=== PATIENT | male | born 1950 | race Caucasian/White ===

== ENCOUNTER 2018-10-02 14:25 | Emergency (ER) | payer MEDICARE ==
[~2018-10-02] VITALS: Ht 172.7 cm; Wt 61.4 kg
[~2018-10-02 14:25] MED LIST: CIPROFLOXACN500 MG PO; CLARITIN10 MG PO; FLEXERIL PO
[2018-10-02 15:15] LABS: HEMATOCRIT 42.7 % (39.0-50.0); HEMOGLOBIN 15.2 g/dl (14.0-18.0); IMMATURE GRANULOCYTES 0.3 % (0.0-5.0); MEAN CELL VOLUME 94.7 fL CALC (80.0-100.0); MEAN CORPUSCULAR HGB 33.7 pG CALC (26.0-32.0); MEAN CORPUSCULAR HGB CONC 35.6 g/L CALC (32.0-36.0); NEUT# 3.39 thou/uL (1.82-7.42); RED BLOOD COUNT 4.51 mill/uL (4.70-6.10); RED CELL DISTRI WIDTH 12.1 % (11.5-15.5)
[2018-10-02 15:29] LABS: ALKALINE PHOSPHATASE 73 u/l (38-126); ANION GAP 13 (6-22 (CALC)); BILIRUBIN, TOTAL 0.5 mg/dL (0.0-1.4); BUN 3 mg/dL (8-23); BUN/CREATININE RATIO 5 (12-20 (CALC)); CARBON DIOXIDE 24 mmol/l (22-30); CHLORIDE 101 mmol/l (95-108); CREATININE 0.7 mg/dL (0.7-1.3); GFR > 60 ML/MIN (>=60 (CALC)); GFR FOR AFR.AMER. > 60 ML/MIN (>=60 (CALC)); POTASSIUM 3.8 mmol/l (3.5-5.1); SGOT/AST 32 u/l (19-48); SODIUM 133 mmol/l (137-146); TOTAL PROTEIN 7.2 g/dL (6.3-8.2)
[2018-10-02 17:27] VITALS: BP 149/87
== END 2018-10-02 17:50 | disposition home or self-care (01) ==
LOC: ED 14:25
PROVIDERS: Family Medicine
DX: R41.82 Altered mental status, unspecified (principal); R94.31 Abnormal electrocardiogram [ECG] [EKG]

== ENCOUNTER 2019-11-13 19:31 | Observation (INO) | payer MEDICARE ==
[~2019-11-13] VITALS: Ht 172.7 cm; Wt 54.0 kg
--- NOTE | 2019-11-13 19:32 | NUR ---
BY WC TO ROOM
--- NOTE | 2019-11-13 20:00 | NUR ---
PT PRESENTS WITH SHARP CHEST PAIN OF 7/10 THAT RADIATES TO LEFT JAW. PT MENTIONS FEELING THE PAIN AND PRESSURE AT 1900. PT DENIES ANY OTHER PAINS. CAP REFILL BRISK, LUNGS SOUND DEMINISHED IN THE LOWER LUNGS BILATERALLY. THE RIGHT UPPER LUNG SOUNDS CLEAR THE LEFT UPPER LUNG IS LESS AUDIBLE THAN RIGHT UPPER LUNG. PULSES EQUAL BILATERALLY IN ALL EXTREMITIES. SKIN IS WARM AND PINK. WILL CONTINUE TO MONITOR
[2019-11-13] MEDS ORDERED: MIRTAZAPINE15 M1 PO (20:04)
[2019-11-13] MEDS ORDERED: VITAMIN B-1100 M1 PO (20:05)
[2019-11-13] MEDS ORDERED: VITAMIN B-12500 MCG PO (20:05)
[2019-11-13 20:12] LABS: HEMATOCRIT 41.2 % (39.0-50.0); HEMOGLOBIN 14.3 g/dl (14.0-18.0); IMMATURE GRANULOCYTES 0.7 % (0.0-5.0); MEAN CELL VOLUME 90.9 fL CALC (80.0-100.0); MEAN CORPUSCULAR HGB 31.6 pG CALC (26.0-32.0); MEAN CORPUSCULAR HGB CONC 34.7 g/L CALC (32.0-36.0); NEUT# 4.3 thou/uL (1.82-7.42); RED BLOOD COUNT 4.53 mill/uL (4.70-6.10); RED CELL DISTRI WIDTH 12.2 % (11.5-15.5)
[2019-11-13 20:13] LABS: URINE BILIRUBIN - DIPSTICK NEGATIVE (NEGATIVE); URINE BLOOD DIPSTICK NEGATIVE (NEGATIVE); URINE COLOR YELLOW; URINE GLUCOSE - DIPSTICK NEGATIVE (NEGATIVE); URINE KETONE NEGATIVE (NEGATIVE); URINE LEUK ESTERASE NEGATIVE (NEGATIVE); URINE NITRITE - DIPSTICK NEGATIVE (Negative); URINE PROTEIN - DIPSTICK NEGATIVE (NEG-TRACE); URINE UROBILINOGEN - DIPSTICK 0.2 E.U./dL (0.2)
[2019-11-13 20:30] LABS: ALBUMIN 3.4 g/dL (3.2-5.0); ANION GAP 11 (6-22 (CALC)); BUN 7 mg/dL (8-23); BUN/CREATININE RATIO 12 (12-20 (CALC)); CARBON DIOXIDE 28 mmol/l (22-30); CHLORIDE 92 mmol/l (95-108); CREATININE 0.6 mg/dL (0.7-1.3); GFR > 60 ML/MIN (>=60 (CALC)); GFR FOR AFR.AMER. > 60 ML/MIN (>=60 (CALC)); SODIUM 127 mmol/l (137-146)
[2019-11-13 20:36] LABS: ALKALINE PHOSPHATASE 150 u/l (38-126); BILIRUBIN, TOTAL 1.1 mg/dL (0.0-1.4); SGOT/AST 162 u/l (19-48)
[2019-11-13 20:42] LABS: MYOGLOBIN 26 ng/mL (0 - 121)
--- NOTE | 2019-11-13 21:16 | NUR ---
PT RESTING ON STRETCHER WATCHING TV. PT CONTINUES TO STATES THAT HIS PAIN IS 7/10. NOTIFIED
--- NOTE | 2019-11-13 21:43 | NUR ---
REPORT ATTEMPTED TO BE [facility] AND FRANKI STATED THAT [facility] IS NO WHERE TO BE FOUND, THAT SOON SHE SEES HER, THEY WILL CALL BACK
--- NOTE | 2019-11-13 21:54 | NUR ---
REPORT [facility] DO[facility]
--- NOTE | 2019-11-13 22:00 | NUR ---
PT. TAKEN TO [facility] FLOOR VIA STRETCHER, NO C/O AT THIS TIME.
[2019-11-13 22:20] VITALS: BP 132/78
--- NOTE | 2019-11-13 22:45 | NUR ---
[id number]- PT. ARRIVED TO THE FLOOR VIA STRETCHER ACCOMPANIED BY ER NURSE AND . PT. WITH DEMENTIA AND PER PT. HAS NO SHORT TERM MEMORY. ALL PMH OBTAINED FROM WHO IS HIS POA. ADMISSION ASSESSMENT COMPLETED.EDUCATED STAFF EDITOR LIGHT, POC, AND ROOM AND VERBALIZES UNDERSTANDING. BED ALARM SET FOR SAFETY. PT. REPORTS PAIN POINTING TO EPIGASTRIC 10/10 AND MEDICATED WITH ORDERED MORPHINE, WILL REASSESS. IVF STARTED PER ORDER. CALL LIGHT IS IN REACH. WILL CONTINUE TO MONITOR.
[2019-11-14] VITALS (7 sets, daily range): BP systolic 130–150; BP diastolic 74–87
--- NOTE | 2019-11-14 | NUR ---
PT. RESTING IN BED WITH EYES CLOSED; RESP. EVEN AND UNLABORED. CALL LIGHT IS IN REACH. BED ALARM SET.
--- NOTE | 2019-11-14 02:14 | NUR ---
ASSISTED TO USE URINAL AND BACK INTO BED. BED ALARM RE-SET. VOICES NO CONCERNS. CALL LIGHT IS IN REACH.
--- NOTE | 2019-11-14 03:25 | NUR ---
PT. ASSISTED TO USE THE URINAL AND BACK INTO BED. PT. VOICES NO CONCERNS. VSS. ENCOURAGED TO CALL FOR ANY NEEDS.
--- NOTE | 2019-11-14 08:30 | NUR ---
RESTING IN BED. AT BEDSIDE. RESP NON-LABORED. LUNGS CLEAR. IV IN LAC SITE BEING, NS INFUSING AT 120 L/HR, IV SITE HEALTHY. PATIENT DENIES ANY CHEST PAIN OR DISCOMFORTS. DISCUSSED PLAN OF CARE. DENIES NEEDS AT THIS TIME. CALL [facility] IN REACH.
--- NOTE | 2019-11-14 12:20 | NUR ---
RESTING IN BED. ATE ONLY VERY SMALL AMOUNT FROM LUNCH TRAY. NO COMPLAINTS VOICED. IV INFUSING WITHOUT INCIDENT.
--- NOTE | 2019-11-14 16:10 | NUR ---
DR STAPLETON AND Hanh BLANCA/GEORGE IN TO SEE PATIENT.
--- NOTE | 2019-11-14 19:10 | NUR ---
REPORT RECEIVED FROM MARYAM TENORIO. PT RESTING IN BED, FAMILY AT BEDSIDE. NO S/S OF DISTRESS AT THIS TIME. SAFETY PRECAUTIONS IN PLACE. WILL CONTINUE TO MONITOR.
--- NOTE | 2019-11-14 20:33 | NUR ---
PT RESTING IN BED. RESPIRATIONS EVEN AND UNLABORED ON RA, LUNGS SOUND DIMINISHED. PEDAL PULSES STRONG. PT DENIES ANY PAIN OR DISCOMFORT AT THIS TIME. BED ALARM ACTIVE FOR PT SAFETY. WILL CONTINUE TO MONITOR.
--- NOTE | 2019-11-15 00:15 | NUR ---
PT RESTING IN BED. RESPIRATIONS EVEN AND UNLABORED ON RA. SAFETY PRECAUTIONS IN PLACE. WILL CONTINUE TO MONITOR.
[2019-11-15 03:39] VITALS: BP 141/85
--- NOTE | 2019-11-15 03:57 | NUR ---
PT RESTING IN BED. RESPIRATIONS EVEN AND UNLABORED ON RA. CALL [facility] WITHIN REACH. WILL CONTINUE TO MONITOR.
[2019-11-15 05:20] LABS: HEMATOCRIT 36.7 % (39.0-50.0); IMMATURE GRANULOCYTES 0.3 % (0.0-5.0); MEAN CELL VOLUME 95.6 fL CALC (80.0-100.0); MEAN CORPUSCULAR HGB 33.9 pG CALC (26.0-32.0); MEAN CORPUSCULAR HGB CONC 35.4 g/L CALC (32.0-36.0); NEUT# 3.39 thou/uL (1.82-7.42); RED BLOOD COUNT 3.84 mill/uL (4.70-6.10); RED CELL DISTRI WIDTH 12.3 % (11.5-15.5)
[2019-11-15 05:35] LABS: ALKALINE PHOSPHATASE 210 u/l (38-126); BILIRUBIN, TOTAL 0.8 mg/dL (0.0-1.4); BUN 4 mg/dL (8-23); BUN/CREATININE RATIO 7 (12-20 (CALC)); CHLORIDE 103 mmol/l (95-108); CREATININE 0.6 mg/dL (0.7-1.3); GFR > 60 ML/MIN (>=60 (CALC)); GFR FOR AFR.AMER. > 60 ML/MIN (>=60 (CALC)); POTASSIUM 4.2 mmol/l (3.5-5.1); SGOT/AST 138 u/l (19-48); SODIUM 131 mmol/l (137-146); TOTAL PROTEIN 5.7 g/dL (6.3-8.2)
[2019-11-15 06:10] LABS: ALBUMIN 2.6 g/dL (3.2-5.0); ANION GAP 11 (6-22 (CALC)); CARBON DIOXIDE 21 mmol/l (22-30)
[2019-11-15 07:55] VITALS: BP 122/68
--- NOTE | 2019-11-15 07:55 | NUR ---
SITTING UP IN CHAIR ON ROUNDS. RESP NON-LABORED. OCC NON-PRODUCTIVE COUGH NOTED. BREATH SOUNDS CLEAR, DIMINISHED IN BASES BILATERALLY. IV IN LFA, SITE BENIGN, NS INFUSING AT 120 ML/HR. IV SITE HEALTHY. DISCUSSED PLAN OF CARE. DENIES NEEDS AT THIS TIME. CALL [facility] IN REACH.
--- NOTE | 2019-11-15 10:00 | NUR ---
AMBULATED IN VEGA WITH STABLE STANCE AND GAIT, ACCOMPANIED BY SPOUSE.
[2019-11-15 11:00] VITALS: BP 122/84
--- NOTE | 2019-11-15 12:15 | NUR ---
AMBULATED IN VEGA EARLIER ON OWN BUT IN VIEW OF NURSES STATION, STEADY GAIT.
[2019-11-15] MEDS ORDERED: ZITHROMAX500 MG PO (13:33)
--- NOTE | 2019-11-15 14:48 | NUR ---
Discharge instructions given. Patient verbalizes understanding of same. Discharged in stable condition via Wheelchair to Home with spouse. All belongings sent with pt.
== END 2019-11-15 14:48 | disposition home or self-care (01) ==
LOC: ED 19:31 → ED-I 20:55 → ED 21:15 → MS2 21:16
PROVIDERS: Emergency Medicine; Nurse Practitioner Family; ADMIT Internal Medicine; ATTEND Internal Medicine
DX: R07.9 Chest pain, unspecified (principal); E87.1 Hypo-osmolality and hyponatremia; R91.8 Other nonspecific abnormal finding of lung field; F03.90 Unspecified dementia, unspecified severity, without behavioral disturbance, psychotic disturbance, mood disturbance, and anxiety; K21.9 Gastro-esophageal reflux disease without esophagitis; Z68.1 Body mass index [BMI] 19.9 or less, adult; F10.20 Alcohol dependence, uncomplicated; E44.0 Moderate protein-calorie malnutrition; K70.10 Alcoholic hepatitis without ascites; F17.290 Nicotine dependence, other tobacco product, uncomplicated
CPT/HCPCS: G0378

== ENCOUNTER 2019-12-31 04:42 | Inpatient (IN) | payer MEDICARE ==
[~2019-12-31] VITALS: Ht 172.7 cm; Wt 54.0 kg
[~2019-12-31 04:42] MED LIST changes: +MIRTAZAPINE15 M1 PO; +VITAMIN B-1100 M1 PO; +VITAMIN B-12500 MCG PO; +ZITHROMAX500 MG PO
[2019-12-31] MEDS ORDERED: VITAMIN D31000 UNI1 PO (05:02)
[2019-12-31] MEDS ORDERED: BUSPAR5 MG PO (05:02)
[2019-12-31] MEDS ORDERED: OMEPRAZOLE10 MG PO (05:03)
[2019-12-31 05:15] LABS: HEMATOCRIT 45.3 % (39.0-50.0); HEMOGLOBIN 15.8 g/dl (14.0-18.0); IMMATURE GRANULOCYTES 0.2 % (0.0-5.0); MEAN CELL VOLUME 89.7 fL CALC (80.0-100.0); MEAN CORPUSCULAR HGB 31.3 pG CALC (26.0-32.0); MEAN CORPUSCULAR HGB CONC 34.9 g/L CALC (32.0-36.0); NEUT# 3.56 thou/uL (1.82-7.42); RED BLOOD COUNT 5.05 mill/uL (4.70-6.10); RED CELL DISTRI WIDTH 13.1 % (11.5-15.5)
[2019-12-31 05:26] LABS: ALBUMIN 4.3 g/dL (3.2-5.0); ALKALINE PHOSPHATASE 109 u/l (38-126); AMYLASE 142 u/l (30-110); ANION GAP 13 (6-22 (CALC)); BILIRUBIN, TOTAL 0.6 mg/dL (0.0-1.4); BUN 4 mg/dL (8-23); BUN/CREATININE RATIO 7 (12-20 (CALC)); CARBON DIOXIDE 25 mmol/l (22-30); CHLORIDE 98 mmol/l (95-108); CREATININE 0.6 mg/dL (0.7-1.3); GFR > 60 ML/MIN (>=60 (CALC)); GFR FOR AFR.AMER. > 60 ML/MIN (>=60 (CALC)); LIPASE 933 u/l (23-300); POTASSIUM 3.8 mmol/l (3.5-5.1); SGOT/AST 28 u/l (19-48); SODIUM 132 mmol/l (137-146); TOTAL PROTEIN 8.2 g/dL (6.3-8.2)
[2019-12-31 05:38] LABS: MYOGLOBIN 29 ng/mL (0 - 121)
[2019-12-31 06:47] LABS: URINE BILIRUBIN - DIPSTICK NEGATIVE (NEGATIVE); URINE BLOOD DIPSTICK NEGATIVE (NEGATIVE); URINE COLOR YELLOW; URINE GLUCOSE - DIPSTICK NEGATIVE (NEGATIVE); URINE KETONE TRACE mg/dL (NEGATIVE); URINE LEUK ESTERASE NEGATIVE (NEGATIVE); URINE NITRITE - DIPSTICK NEGATIVE (Negative); URINE PH 7.5 (4.5-8.0); URINE PROTEIN - DIPSTICK NEGATIVE (NEG-TRACE); URINE UROBILINOGEN - DIPSTICK 0.2 E.U./dL (0.2)
[2019-12-31 09:15] VITALS: BP 175/96
[2019-12-31 16:00] VITALS: BP 177/97
[2019-12-31 18:36] VITALS: BP 137/62
[2020-01-01 04:11] VITALS: BP 109/64
[2020-01-01 05:39] LABS: IMMATURE GRANULOCYTES 0.2 % (0.0-5.0); MEAN CORPUSCULAR HGB 31.6 pG CALC (26.0-32.0); MEAN CORPUSCULAR HGB CONC 34.7 g/L CALC (32.0-36.0); NEUT# 3.16 thou/uL (1.82-7.42); RED BLOOD COUNT 4.21 mill/uL (4.70-6.10); RED CELL DISTRI WIDTH 13.2 % (11.5-15.5)
[2020-01-01 05:49] LABS: HEMATOCRIT 38.3 % (39.0-50.0); HEMOGLOBIN 13.3 g/dl (14.0-18.0)
[2020-01-01 06:04] LABS: ANION GAP 9 (6-22 (CALC)); BUN 3 mg/dL (8-23); BUN/CREATININE RATIO 6 (12-20 (CALC)); CARBON DIOXIDE 24 mmol/l (22-30); CHLORIDE 99 mmol/l (95-108); CREATININE 0.5 mg/dL (0.7-1.3); GFR > 60 ML/MIN (>=60 (CALC)); GFR FOR AFR.AMER. > 60 ML/MIN (>=60 (CALC)); LIPASE 912 u/l (23-300); MAGNESIUM 1.5 mg/dL (1.6-2.3); POTASSIUM 3.5 mmol/l (3.5-5.1); SODIUM 129 mmol/l (137-146)
[2020-01-01 08:00] VITALS: BP 135/73
[2020-01-01 14:40] VITALS: BP 149/87
[2020-01-01 18:36] VITALS: BP 145/78
[2020-01-02 04:22] VITALS: BP 153/83
[2020-01-02 05:30] LABS: HEMATOCRIT 39.6 % (39.0-50.0); HEMOGLOBIN 13.6 g/dl (14.0-18.0); MEAN CELL VOLUME 90.8 fL CALC (80.0-100.0); MEAN CORPUSCULAR HGB 31.2 pG CALC (26.0-32.0); MEAN CORPUSCULAR HGB CONC 34.3 g/L CALC (32.0-36.0); RED BLOOD COUNT 4.36 mill/uL (4.70-6.10); RED CELL DISTRI WIDTH 13.1 % (11.5-15.5)
[2020-01-02 05:59] LABS: ALBUMIN 2.8 g/dL (3.2-5.0); ALKALINE PHOSPHATASE 69 u/l (38-126); ANION GAP 9 (6-22 (CALC)); BILIRUBIN, TOTAL 0.8 mg/dL (0.0-1.4); BUN 2 mg/dL (8-23); BUN/CREATININE RATIO 4 (12-20 (CALC)); CARBON DIOXIDE 24 mmol/l (22-30); CHLORIDE 97 mmol/l (95-108); CREATININE 0.5 mg/dL (0.7-1.3); GFR > 60 ML/MIN (>=60 (CALC)); GFR FOR AFR.AMER. > 60 ML/MIN (>=60 (CALC)); MAGNESIUM 1.4 mg/dL (1.6-2.3); POTASSIUM 3.3 mmol/l (3.5-5.1); SGOT/AST 23 u/l (19-48); SODIUM 127 mmol/l (137-146); TOTAL PROTEIN 5.7 g/dL (6.3-8.2)
[2020-01-02 08:45] VITALS: BP 141/68
[2020-01-02 16:01] VITALS: BP 156/87
[2020-01-02 19:13] VITALS: BP 163/82
[2020-01-03 04:50] VITALS: BP 109/61
[2020-01-03 05:20] LABS: HEMATOCRIT 40.7 % (39.0-50.0); HEMOGLOBIN 13.8 g/dl (14.0-18.0); MEAN CELL VOLUME 90.4 fL CALC (80.0-100.0); MEAN CORPUSCULAR HGB 30.7 pG CALC (26.0-32.0); MEAN CORPUSCULAR HGB CONC 33.9 g/L CALC (32.0-36.0); RED BLOOD COUNT 4.5 mill/uL (4.70-6.10); RED CELL DISTRI WIDTH 12.9 % (11.5-15.5)
[2020-01-03 05:36] LABS: ANION GAP 8 (6-22 (CALC)); BUN 4 mg/dL (8-23); BUN/CREATININE RATIO 8 (12-20 (CALC)); CARBON DIOXIDE 26 mmol/l (22-30); CHLORIDE 98 mmol/l (95-108); CREATININE 0.5 mg/dL (0.7-1.3); GFR > 60 ML/MIN (>=60 (CALC)); GFR FOR AFR.AMER. > 60 ML/MIN (>=60 (CALC)); POTASSIUM 3.5 mmol/l (3.5-5.1); SODIUM 129 mmol/l (137-146)
[2020-01-03 06:06] LABS: MAGNESIUM 1.9 mg/dL (1.6-2.3)
[2020-01-03 06:59] LABS: AMYLASE 135 u/l (30-110); LIPASE 1058 u/l (23-300)
[2020-01-03 07:00] VITALS: BP 131/74
[2020-01-03] MEDS ORDERED: LIBRIUM25 M1 PO (12:32)
[2020-01-03] MEDS ORDERED: SOD CHLORIDE1 GM PO (12:33)
== END 2020-01-03 13:39 | disposition home or self-care (01) | DRG 439 ==
LOC: ED 04:42 → ED-I 05:03 → ED 05:03 → ED-I 07:00 → ED 07:21 → MS2 07:22
PROVIDERS: Family Medicine; Nurse Practitioner Family; ADMIT Internal Medicine; ATTEND Internal Medicine
PROC: 3E02340 Introduction of Influenza Vaccine into Muscle, Percutaneous Approach (ICD-10-PCS; principal; 2020-01-01)
PROC: 3E0234Z Introduction of Serum, Toxoid and Vaccine into Muscle, Percutaneous Approach (ICD-10-PCS; 2020-01-01)
DX: K85.20 Alcohol induced acute pancreatitis without necrosis or infection (principal); E44.0 Moderate protein-calorie malnutrition; Z68.1 Body mass index [BMI] 19.9 or less, adult; E22.2 Syndrome of inappropriate secretion of antidiuretic hormone; F10.26 Alcohol dependence with alcohol-induced persisting amnestic disorder; K86.0 Alcohol-induced chronic pancreatitis; F03.90 Unspecified dementia, unspecified severity, without behavioral disturbance, psychotic disturbance, mood disturbance, and anxiety; K21.9 Gastro-esophageal reflux disease without esophagitis; I10 Essential (primary) hypertension; L50.9 Urticaria, unspecified; D64.9 Anemia, unspecified; E83.42 Hypomagnesemia; E87.6 Hypokalemia; F17.290 Nicotine dependence, other tobacco product, uncomplicated; Z23 Encounter for immunization
CPT/HCPCS: J3475; Q9967; S0164

== ENCOUNTER 2020-01-08 15:27 | Inpatient (IN) | payer MEDICARE ==
[~2020-01-08] VITALS: Ht 172.7 cm; Wt 60.0 kg
[~2020-01-08 15:27] MED LIST changes: +BUSPAR5 MG PO; +LIBRIUM25 M1 PO; +OMEPRAZOLE10 MG PO; +SOD CHLORIDE1 GM PO; +VITAMIN D31000 UNI1 PO
--- NOTE | 2020-01-08 15:28 | NUR ---
PT TO ROOM VIA WHEELCHAIR FOR BEDSIDE TRIAGE.
--- NOTE | 2020-01-08 15:40 | NUR ---
AT BEDSIDE AND REPORTS HISTORY OF PANCREATITS AND RECENTLY DISCHRAGED FROM HOSPITAL LAST WEEK.
[2020-01-08 15:57] LABS: HEMATOCRIT 44.4 % (39.0-50.0); HEMOGLOBIN 15.4 g/dl (14.0-18.0); IMMATURE GRANULOCYTES 0.4 % (0.0-5.0); MEAN CELL VOLUME 89.7 fL CALC (80.0-100.0); MEAN CORPUSCULAR HGB 31.1 pG CALC (26.0-32.0); MEAN CORPUSCULAR HGB CONC 34.7 g/L CALC (32.0-36.0); NEUT# 7.27 thou/uL (1.82-7.42); RED BLOOD COUNT 4.95 mill/uL (4.70-6.10); RED CELL DISTRI WIDTH 12.7 % (11.5-15.5)
[2020-01-08 16:20] LABS: ALKALINE PHOSPHATASE 91 u/l (38-126); BILIRUBIN, TOTAL 0.8 mg/dL (0.0-1.4); BUN 10 mg/dL (8-23); BUN/CREATININE RATIO 19 (12-20 (CALC)); CHLORIDE 97 mmol/l (95-108); CREATININE 0.5 mg/dL (0.7-1.3); GFR > 60 ML/MIN (>=60 (CALC)); GFR FOR AFR.AMER. > 60 ML/MIN (>=60 (CALC)); LIPASE 1996 u/l (23-300); SGOT/AST 31 u/l (19-48); SODIUM 132 mmol/l (137-146)
[2020-01-08 16:21] LABS: ALBUMIN 4.2 g/dL (3.2-5.0); ANION GAP 19 (6-22 (CALC)); CARBON DIOXIDE 20 mmol/l (22-30); TOTAL PROTEIN 7.9 g/dL (6.3-8.2)
--- NOTE | 2020-01-08 16:40 | NUR ---
PT RESTING ON STRETHCER, NO COMPLAINTS STATED
--- NOTE | 2020-01-08 17:40 | NUR ---
PT STATES PAIN HAS DECREASED TO A 6/10. NO NEEDS STATED
--- NOTE | 2020-01-08 18:52 | NUR ---
REPORT GIVEN TO SHAWANDA FRANCISCO
--- NOTE | 2020-01-08 19:38 | NUR ---
Admission Note Report Given to: MARYAM AYALA Transported by: Wheelchair X Stretcher Transported with: X Nurse Transporter X Patent IV O2 [employer] Officer Location: ICU X [facility]
--- NOTE | 2020-01-08 20:15 | NUR ---
PT ARRIVED TO UNIT @ 1940 FROM ED. ADMITTED TO ROOM 274. ASSESMENT COMPLETE. ORIENTED TO ROOM, UNIT, AND PLAN OF CARE REVIEWED. PT VERBALIZES UNDERSTANDING, DENIES QUESTIONS AT THIS TIME. PT DENIES PAIN, N/V, PT DOES C/O HICCUPS. DENIES FURTHER NEEDS AT THIS TIME. CALL [facility] WITHIN REACH. AGREES TO CALL PRN.
[2020-01-09 00:10] VITALS: BP 151/87
--- NOTE | 2020-01-09 00:30 | NUR ---
PT RESTING IN BED, AWAKE. DENIES PAIN, CON'T TO HAVE HICCUPS. -N/V. DENIES NEEDS AT THIS TIME. CALL [facility] WITHIN REACH. AGREES TO CALL PRN.
[2020-01-09 04:06] VITALS: BP 150/91
--- NOTE | 2020-01-09 04:09 | NUR ---
PT APPEARS TO BE SLEEPING COMFORTABLY, NO APPARENT DISTRESS, RESP REG/UNLABORED. PT WAKES EASILY. NOTED EMESIS BASIN W/ 250ML CLEAR BROWN LIQUID W/ SEDIMENT. PT ADMITS TO EMESISX1, PT CANNOT PROVIDE REASON WHY HE DIDNT CALL TO REPORT N/V. SOME EMESIS NOTED TO LINENS, PARTIAL LINEN CHANGE COMPLETED. PT DENIES FURTHER NEEDS AT THIS TIME, DENIES NAUSEA OR PAIN. CALL [facility] WITHIN REACH AND PT AGREES TO CALL PRN. WILL REINFORCE USE OF CALL GARDNER MORE FREQUENTLY AND CONTINUE TO MONITOR.
[2020-01-09 05:43] LABS: AMYLASE 162 u/l (30-110); LIPASE 1226 u/l (23-300)
[2020-01-09 08:00] VITALS: BP 169/89
[2020-01-09 15:34] VITALS: BP 148/88
[2020-01-09 19:14] VITALS: BP 156/85
--- NOTE | 2020-01-09 19:30 | NUR ---
PT RESTING IN BED. RESPIRATIONS EVEN AND UNLABORED ON RA. LUNGS SOUND CLEAR. PEDAL PULSES STRONG. PT DENIES ANY PAIN OR DISCOMFORT AT THIS TIME. SAFETY PRECAUTIONS IN PLACE. WILL CONTINUE TO MONTIOR.
--- NOTE | 2020-01-09 23:29 | NUR ---
PT RESTING IN BED. NO S/S OF DISTRESS AT THIS TIME. SAFE PRECAUTIONS IN PLACE. WILL CONTINUE TO MONITOR.
[2020-01-10 04:35] VITALS: BP 150/87
[2020-01-10 06:20] LABS: ANION GAP 13 (6-22 (CALC)); BUN 7 mg/dL (8-23); BUN/CREATININE RATIO 16 (12-20 (CALC)); CARBON DIOXIDE 22 mmol/l (22-30); CHLORIDE 96 mmol/l (95-108); CREATININE 0.4 mg/dL (0.7-1.3); GFR > 60 ML/MIN (>=60 (CALC)); GFR FOR AFR.AMER. > 60 ML/MIN (>=60 (CALC)); LIPASE 1795 u/l (23-300); SODIUM 128 mmol/l (137-146)
[2020-01-10 06:23] LABS: POTASSIUM 2.9 mmol/l (3.5-5.1)
--- NOTE | 2020-01-10 06:23 | NUR ---
PT RESTING IN BED. RESPIRATIONS EVEN AND UNLABORED ON RA. PT FREE FROM DISTRESS AT THIS TIME. SAFETY PRECAUTIONS IN PLACE. WILL CONTINUE TO MONITOR.
[2020-01-10 08:20] VITALS: BP 162/92
--- NOTE | 2020-01-10 08:20 | NUR ---
ASSESSMENT IS COMPLETED: IV SITE IS FREE FROM REDNESS OR EDEMA. HR IS REG,PULSES ARE STRONG X4, ABD IS SOFT WITH ACTIVE BS.,BREATH SOUNDS ARE CLEAR,BILATERALLY,. CONTINUE TO OSBERVE AND MONITOR
--- NOTE | 2020-01-10 12:45 | NUR ---
PT IS RELAXING IN BED HAD TO CHANGE THE ROOM DUE TO BEING COLD. IV SITE IS FREE FROM REDNESS OR EDEMA. CONTINUE TO OBSERVE AND MONITOR.
[2020-01-10 15:20] VITALS: BP 186/98
--- NOTE | 2020-01-10 16:30 | NUR ---
PT IS RELAXING IN BED WITH NO DISTRESS NOTED. IV SITE IS FREE FROM REDNESS OR EDEMA.
[2020-01-10 17:46] VITALS: BP 145/76
[2020-01-10 19:57] VITALS: BP 140/71
--- NOTE | 2020-01-10 20:00 | NUR ---
PT RESTING IN BED, NO SIGNS OF DISTRESS NOTED, RESP EVEN AND UNLABORED. PT ALERT AND ORIENTED X3, CIWA SCORE 0. DISCUSSED POC, PT VOICES NO NEEDS OR COMPLAINTS AT THIS TIME. SNACKS PROVIDED PER REQUEST. CALL LIGHT IN REACH,CONTINUE TO MONITOR.
--- NOTE | 2020-01-10 22:25 | NUR ---
PT RESTING IN BED WITH EYES CLOSED, NO SIGNS OF DISTRESS NOTED, RESP EVEN AND UNLABORED. CALL LIGHT IN REACH,CONTINUE TO MONITOR.
--- NOTE | 2020-01-11 03:28 | NUR ---
PT RESTING IN BED WITH EYES CLOSED, NO SIGNS OF DISTRESS NOTED, RESP EVEN AND UNLABORED. NEW IV BAG HUNG. CALL LIGHT IN REACH,CONTINUE TO MONITOR.
[2020-01-11 04:31] VITALS: BP 151/78
[2020-01-11 05:49] LABS: ALKALINE PHOSPHATASE 60 u/l (38-126); AMYLASE 146 u/l (30-110); ANION GAP 11 (6-22 (CALC)); BILIRUBIN, TOTAL 0.5 mg/dL (0.0-1.4); BUN 3 mg/dL (8-23); BUN/CREATININE RATIO 7 (12-20 (CALC)); CARBON DIOXIDE 23 mmol/l (22-30); CHLORIDE 98 mmol/l (95-108); CREATININE 0.4 mg/dL (0.7-1.3); GFR > 60 ML/MIN (>=60 (CALC)); GFR FOR AFR.AMER. > 60 ML/MIN (>=60 (CALC)); LIPASE 1322 u/l (23-300); POTASSIUM 3.2 mmol/l (3.5-5.1); SGOT/AST 22 u/l (19-48); SODIUM 129 mmol/l (137-146)
[2020-01-11 05:57] LABS: ALBUMIN 2.7 g/dL (3.2-5.0); TOTAL PROTEIN 5.6 g/dL (6.3-8.2)
--- NOTE | 2020-01-11 06:18 | NUR ---
PT RESTING IN BED, NO SIGNS OF DISTRESS NOTED, RESP EVEN AND UNLABORED. PT VOICES NO NEEDS OR COMPLAINTS AT THIS TIME. CALL LIGHT IN REACH,CONTINUE TO MONITOR.
--- NOTE | 2020-01-11 07:24 | NUR ---
REPORT RECEIVED FROM MATTHEW ST. PT SUPINE IN BED. DENIES PAIN. REPORTING OF CONCERNS ENCOURAGED. PLAN OF CARE DISCUSSED. DIET REVIEWED. CALL LIGHT REVIEWED AND IN REACH. PT STATES UNDERSTANDING.
[2020-01-11 08:04] VITALS: BP 159/90
--- NOTE | 2020-01-11 10:24 | NUR ---
PT DENIES ANY ABDOMINAL PAIN OR NAUSEA FOLLOWING BREAKFAST OF CLEAR LIQUIDS.
--- NOTE | 2020-01-11 13:00 | NUR ---
DR. CAMEJO IN TO SEE PT. PLAN OF CARE UPDATED. DIET ADVANCED TO SOFT.
[2020-01-11 15:43] VITALS: BP 161/90
--- NOTE | 2020-01-11 16:30 | NUR ---
BP 161/90, DR CAMEJO NOTIFIED. ORDER FOR NORVASC 5 MG PO DAILY, START NOW.
[2020-01-11 18:54] VITALS: BP 185/91
--- NOTE | 2020-01-11 19:59 | NUR ---
PT RELAXING AT THIS TIME. IVF REPLENISHED. IS AT BEDSIDE. NO S/O DISTRESS NOTED. POC DISCUSSED. IVF RUNNING TO HEALTHY SITE @150CC/HR
[2020-01-11 20:51] VITALS: BP 162/94
[2020-01-12 00:30] VITALS: BP 151/80
--- NOTE | 2020-01-12 02:22 | NUR ---
IVF REPLENISHED AT THIS TIME. PT AWAKE, DENIED ANY NEEDS, REPORTED BEING COMFORTABLE. NO S/O DISTRESS, CIWA 0.
--- NOTE | 2020-01-12 04:28 | NUR ---
AID IN W/PT. PT WAS SLEEPING, BUT AWOKE TO OUR VOICES. NO S/O DISTRESS AT THIS TIME.
[2020-01-12 04:30] VITALS: BP 140/86
[2020-01-12 06:10] LABS: ALBUMIN 2.8 g/dL (3.2-5.0); ALKALINE PHOSPHATASE 56 u/l (38-126); AMYLASE 170 u/l (30-110); ANION GAP 8 (6-22 (CALC)); BILIRUBIN, TOTAL 0.5 mg/dL (0.0-1.4); CARBON DIOXIDE 26 mmol/l (22-30); CHLORIDE 98 mmol/l (95-108); CREATININE 0.4 mg/dL (0.7-1.3); GFR > 60 ML/MIN (>=60 (CALC)); GFR FOR AFR.AMER. > 60 ML/MIN (>=60 (CALC)); LIPASE 1402 u/l (23-300); MAGNESIUM 1.2 mg/dL (1.6-2.3); SGOT/AST 22 u/l (19-48); SODIUM 129 mmol/l (137-146); TOTAL PROTEIN 5.7 g/dL (6.3-8.2)
[2020-01-12 06:14] LABS: BUN 2 mg/dL (8-23); BUN/CREATININE RATIO 5 (12-20 (CALC))
[2020-01-12 07:50] VITALS: BP 152/80
--- NOTE | 2020-01-12 07:50 | NUR ---
ASSESSMENT IS COMPLTED: IV SITE IS FREE FROM REDNESS OR EDEMA. HR IS REG,PULSES ARE STRONG X4, ABD IS SOFT WITH ACTIVE BS. BREATH SOUNDS ARE CLEAR,BILATERALLY, NO C/O SOB. CONTINUE TO OSBERVE AND MONITOR.
[2020-01-12 09:33] VITALS: BP 152/80
--- NOTE | 2020-01-12 12:00 | NUR ---
PT HAS BEEN SITTING IN TH CHAIR, NO DISTRESS NOTED. IV SITE IS FREE FROM REDNESS OR EDEMA.
[2020-01-12] MEDS ORDERED: MAGNESIUM 400 M1 TAB PO (12:30)
[2020-01-12] MEDS ORDERED: FOLIC ACID400 MC1 PO (12:30)
[2020-01-12] MEDS ORDERED: KLOR-CON M2020 MEQ PO (12:30)
--- NOTE | 2020-01-12 14:30 | NUR ---
PT AND FAMILY RECIEVED DISCHARGE INSTRUCTIONS AND TEACHING. IV SITE DISCONTINUED CATHETER INTACT., NO REDNESS OR EDEMA. Discharge instructions given. Patient verbalizes understanding of same. Discharged in stable condition via Wheelchair to Home with family. All belongings sent with pt.
[2020-01-12] MEDS ORDERED: CREON12000 UNT PO (14:34)
--- NOTE | 2020-01-12 16:31 | NUR ---
INFORMED PT'S SPOUSE RE: MEDICATION (CREON) NEEDS TO HAVE PRIOR AUTHORIZATION WILL CONTACT DR CAMEJO RE: THIS MEDICATION. ALSO FOLIC IS OVER THE COUNTER.
== END 2020-01-12 14:37 | disposition home or self-care (01) | DRG 439 ==
LOC: ED 15:27 → ED-I 17:30 → ED 17:51 → MS2 17:52
PROVIDERS: Family Medicine; Nurse Practitioner Family; ADMIT Internal Medicine; ATTEND Internal Medicine
DX: K85.20 Alcohol induced acute pancreatitis without necrosis or infection (principal); F10.27 Alcohol dependence with alcohol-induced persisting dementia; E44.0 Moderate protein-calorie malnutrition; E87.1 Hypo-osmolality and hyponatremia; F10.26 Alcohol dependence with alcohol-induced persisting amnestic disorder; K86.0 Alcohol-induced chronic pancreatitis; E87.6 Hypokalemia; E83.42 Hypomagnesemia; Z68.20 Body mass index [BMI] 20.0-20.9, adult; Z87.891 Personal history of nicotine dependence; R10.13 Epigastric pain
CPT/HCPCS: J3475

== ENCOUNTER 2021-01-16 08:55 | Day surgery (SDC) | payer MEDICARE ==
[~2021-01-16] VITALS: Ht 172.7 cm; Wt 56.7 kg
[~2021-01-16 08:55] MED LIST changes: +CREON12000 UNT PO; +FOLIC ACID1 MG PO; +FOLIC ACID400 MC1 PO; +KLOR-CON M2020 MEQ PO; +LYRICA25 MG PO; +MAGNESIUM 400 M1 TAB PO; +[UNRECOGNIZED DRUG - CODE] PO
[2021-01-16 13:03] VITALS: BP 136/85
== END 2021-01-16 13:35 | disposition home or self-care (01) ==
LOC: ENDO 08:55 → ORM 11:00 → ENDO 11:45 → ORM 12:00 → ENDO 12:25 → ORM 12:50 → ENDO 12:50 → ORM 12:55 → ENDO 13:00 → ORM 13:00 → ENDO 13:20
PROVIDERS: ATTEND Internal Medicine Gastroenterology
PROC: 0DBK8ZX Excision of Ascending Colon, Via Natural or Artificial Opening Endoscopic, Diagnostic (ICD-10-PCS; principal; 2021-01-16)
PROC: 0DBM8ZX Excision of Descending Colon, Via Natural or Artificial Opening Endoscopic, Diagnostic (ICD-10-PCS; 2021-01-16)
PROC: 0DBP8ZX Excision of Rectum, Via Natural or Artificial Opening Endoscopic, Diagnostic (ICD-10-PCS; 2021-01-16)
PROC: 0DBL8ZX Excision of Transverse Colon, Via Natural or Artificial Opening Endoscopic, Diagnostic (ICD-10-PCS; 2021-01-16)
PROC: 0DB98ZX Excision of Duodenum, Via Natural or Artificial Opening Endoscopic, Diagnostic (ICD-10-PCS; 2021-01-16)
PROC: 0DB78ZX Excision of Stomach, Pylorus, Via Natural or Artificial Opening Endoscopic, Diagnostic (ICD-10-PCS; 2021-01-16)
PROC: 0DB18ZX Excision of Upper Esophagus, Via Natural or Artificial Opening Endoscopic, Diagnostic (ICD-10-PCS; 2021-01-16)
DX: Z12.11 Encounter for screening for malignant neoplasm of colon (principal); D12.2 Benign neoplasm of ascending colon; D12.4 Benign neoplasm of descending colon; D12.3 Benign neoplasm of transverse colon; D12.8 Benign neoplasm of rectum; K64.4 Residual hemorrhoidal skin tags; K64.8 Other hemorrhoids; J39.2 Other diseases of pharynx; K31.5 Obstruction of duodenum; Q39.8 Other congenital malformations of esophagus; K29.80 Duodenitis without bleeding; K29.70 Gastritis, unspecified, without bleeding; K44.9 Diaphragmatic hernia without obstruction or gangrene; I10 Essential (primary) hypertension; J44.9 Chronic obstructive pulmonary disease, unspecified; K86.1 Other chronic pancreatitis; F10.20 Alcohol dependence, uncomplicated; Z90.49 Acquired absence of other specified parts of digestive tract; Z86.010 Personal history of colon polyps; Z20.822 Contact with and (suspected) exposure to COVID-19

== ENCOUNTER 2022-02-25 10:35 | Day surgery (SDC) | payer MEDICARE ==
[~2022-02-25] VITALS: Ht 172.7 cm; Wt 58.1 kg
[~2022-02-25 10:35] MED LIST changes: +MEDICAL MARIJUANA
[2022-02-25 13:57] VITALS: BP 132/87
== END 2022-02-25 13:44 | disposition home or self-care (01) ==
LOC: ORM 10:35
PROVIDERS: ATTEND Internal Medicine Gastroenterology
PROC: 0DBK8ZX Excision of Ascending Colon, Via Natural or Artificial Opening Endoscopic, Diagnostic (ICD-10-PCS; principal; 2022-02-25)
PROC: 0DBL8ZX Excision of Transverse Colon, Via Natural or Artificial Opening Endoscopic, Diagnostic (ICD-10-PCS; 2022-02-25)
PROC: 06LY8CC Occlusion of Hemorrhoidal Plexus with Extraluminal Device, Via Natural or Artificial Opening Endoscopic (ICD-10-PCS; 2022-02-25)
PROC: 0D758ZZ Dilation of Esophagus, Via Natural or Artificial Opening Endoscopic (ICD-10-PCS; 2022-02-25)
PROC: 0DB48ZX Excision of Esophagogastric Junction, Via Natural or Artificial Opening Endoscopic, Diagnostic (ICD-10-PCS; 2022-02-25)
DX: Z12.11 Encounter for screening for malignant neoplasm of colon (principal); D12.2 Benign neoplasm of ascending colon; D12.3 Benign neoplasm of transverse colon; D12.9 Benign neoplasm of anus and anal canal; K64.4 Residual hemorrhoidal skin tags; K64.8 Other hemorrhoids; K22.2 Esophageal obstruction; K21.00 Gastro-esophageal reflux disease with esophagitis, without bleeding; K29.70 Gastritis, unspecified, without bleeding; K44.9 Diaphragmatic hernia without obstruction or gangrene; Q43.8 Other specified congenital malformations of intestine; D64.9 Anemia, unspecified; I10 Essential (primary) hypertension; J44.9 Chronic obstructive pulmonary disease, unspecified; Z90.49 Acquired absence of other specified parts of digestive tract; Z86.010 Personal history of colon polyps; Z87.891 Personal history of nicotine dependence; Z85.038 Personal history of other malignant neoplasm of large intestine